=== PATIENT | female | born 1985 | race Caucasian/White ===

== ENCOUNTER 2018-10-25 17:30 | Emergency (ER) | payer OTHER | END 2018-10-25 18:31 | disposition home or self-care (01) | LOC: JERFT 17:30 ==

== ENCOUNTER 2021-08-18 11:58 | Emergency (ER) | payer OTHER ==
[2021-08-18 12:20] VITALS: BP 131/67; PULSE 88; TEMP 98; BMI 35.5
[2021-08-18 13:22] LABS: URINE APPEARANCE CLEAR; URINE BILIRUBIN NEGATIVE (NEGATIVE); URINE COLOR YELLOW; URINE GLUCOSE (UA) NEGATIVE (NEGATIVE); URINE KETONE NEGATIVE (NEGATIVE); URINE LEUK ESTERASE NEGATIVE (NEGATIVE); URINE NITRITE NEGATIVE (NEGATIVE); URINE PROTEIN NEGATIVE (NEGATIVE); URINE UROBILINOGEN 0.2 mg/dL (0.2-1.0)
[2021-08-18 13:37] LABS: HCG,QUALITATIVE URINE Negative
[2021-08-18] MEDS ORDERED: KETOROLAC TROMETHAMINE 30 MG/1 ML VIAL IM ONE (14:16)
[2021-08-18] MEDS ORDERED: KETOROLAC TROMETHAMINE 30 MG/1 ML VIAL ONE (14:37)
== END 2021-08-18 15:15 | disposition home or self-care (01) ==
LOC: JER 11:58
PROC: 3E0233Z Introduction of Anti-inflammatory into Muscle, Percutaneous Approach (ICD-10-PCS; principal; 2021-08-18)
DX: R10.2 Pelvic and perineal pain (principal); R18.8 Other ascites
CPT/HCPCS: 36415; 76830-TC; 81003; 84703; 87086; 87186; 87491; 87591; 99284-25